=== PATIENT | male | born 1990 | race African-American/Black ===

== ENCOUNTER 2025-04-09 18:08 | Emergency (ER) | payer SELFPAY ==
[2025-04-09] MEDS ORDERED: Amoxicillin/Potassium Clav 875 MG TAB ONE (20:03)
== END 2025-04-09 20:31 | disposition home or self-care (01) ==
LOC: ERS 18:08
DX: K08.89 Other specified disorders of teeth and supporting structures (principal); Z55.6 Problems related to health literacy
CPT/HCPCS: 99282